=== PATIENT | female | born 1930 | race Two or more races ===

== ENCOUNTER 2019-02-25 10:58 | Emergency (ER) | payer OTHER ==
[~2019-02-25] VITALS: Ht 154.9 cm; Wt 59.0 kg
[2019-02-25] MEDS ORDERED: PRILOSEC OTC20 MG PO (11:15)
[2019-02-25] MEDS ORDERED: LASIX20 MG PO (11:15)
[2019-02-25] MEDS ORDERED: PROCARDIA XL90 MG PO (11:15)
[2019-02-25] MEDS ORDERED: ZANTAC150 M3 PO (11:15)
[2019-02-25] MEDS ORDERED: LOPRESSOR HCT1 EACH PO (11:16)
[2019-02-25] MEDS ORDERED: HYDRALAZINE HC100 MG PO (11:16)
[2019-02-25] MEDS ORDERED: VASOTEC20 M1 PO (11:16)
[2019-02-25] MEDS ORDERED: WARFARIN SODIUM4 MG PO (11:16)
[2019-02-25] MEDS ORDERED: UNISOM25 MG PO (11:17)
[2019-02-25] MEDS ORDERED: ZYLOPRIM100 MG PO (11:17)
[2019-02-25] MEDS ORDERED: MELATONIN5 M2 (11:17)
[2019-02-25] MEDS ORDERED: INTEGRA PLUS C1 EACH PO (11:17)
[2019-02-25] MEDS ORDERED: CALCITRIOL0.25 MCG PO (11:17)
[2019-02-25] MEDS ORDERED: ULTRACET PO (15:44)
== END 2019-02-25 17:14 | disposition home or self-care (01) ==
LOC: ER 10:58
DX: R22.31 Localized swelling, mass and lump, right upper limb (principal)